=== PATIENT | female | born 1975 | race Caucasian/White ===

== ENCOUNTER 2020-09-15 16:57 | Emergency (ER) | payer OTHER ==
[~2020-09-15] VITALS: Ht 167.6 cm; Wt 114.3 kg
--- NOTE | 2020-09-15 17:20 | NUR ---
pt bib self c/o diarrhea and body aches, dysuria, and burning sensation x 8 days. vs checked. pt afebrile. seen by
[2020-09-15] MEDS ORDERED: IV NS 0.9% 1,000 ML IV ONE (17:30)
[2020-09-15 17:37] LABS: COLOR,URINE YELLOW (YELLOW)
[2020-09-15 17:38] LABS: BILIRUBIN,URINE NEGATIVE (NEGATIVE); LEUKOCYTE ESTERASE ,URINE NEGATIVE (NEGATIVE); NITRITE, URINE NEGATIVE (NEGATIVE); PROTEIN,URINE NEGATIVE (NEGATIVE); UGLUCOSE NEGATIVE (NEGATIVE); UROBILINOGEN,URINE 0.2 EU/dL (0.2)
--- NOTE | 2020-09-15 17:38 | NUR ---
covid swab done. sent to lab
[2020-09-15 17:39] LABS: BLOOD, URINE NEGATIVE Ery/uL (NEGATIVE)
[2020-09-15 18:08] LABS: CALCIUM, SERUM 8.8 mg/dL (8.5-10.1); CREATININE 0.8 mg/dL (0.6-1.3); POTASSIUM 3.7 mmol/L (3.5-5.1)
[2020-09-15 18:14] LABS: ALBUMIN 3.6 g/dL (3.4-5.0); BILIRUBIN,TOTAL 0.5 mg/dL (0.2-1.0); TOTAL PROTEIN, SERUM 6.4 g/dL (6.4-8.2)
--- NOTE | 2020-09-15 18:46 | NUR ---
called rt for breathing tx
[2020-09-15] MEDS ORDERED: IOHEXOL-300 100 ML VIAL IV ONE (19:01)
[2020-09-15] MEDS ORDERED: IV NS 0.9% 250 ML IV ONE (19:01)
[2020-09-15 19:02] LABS: BASOPHILS % (AUTO) 0.8 % (0.0-2.0); EOSINOPHILS % (AUTO) 3.5 % (0.0-6.0); HEMATOCRIT 38 % (33-45); HEMOGLOBIN 13.3 g/dL (11.5-14.8); LYMPHOCYTES # (AUTO) 1.2 /CMM (0.8-4.8); LYMPHOCYTES % (AUTO) 22.8 % (20.0-44.0); MEAN CORPUSCULAR HGB CONC 35 g/dl (31.0-36.0); MEAN CORPUSCULAR VOLUME 103 fL (82-100); MONOCYTES # (AUTO) 0.4 /CMM (0.1-1.30); MONOCYTES % (AUTO) 8.1 % (2.0-12.0); NEUTROPHILS # (AUTO) 3.3 /CMM (1.8-8.9); NEUTROPHILS % (AUTO) 64.8 % (43.0-81.0); PLATELET COUNT (AUTO) 222 /CMM (150-450); WHITE BLOOD COUNT (AUTO) 5.1 K/uL (4.3-11.0)
--- NOTE | 2020-09-15 19:10 | NUR ---
PT BROUGHT TO CT
--- NOTE | 2020-09-15 19:15 | NUR ---
PT AAOX4, VSS, RESPIRATIONS EVEN AND UNLABORED ON RA W/ NAD NOTED. PT CONNECTED TO THE MONITOR AND POX. PT HAS NO MEDICAL COMPLAINTS AT THIS TIME
--- NOTE | 2020-09-15 19:23 | NUR ---
PT BACK FROM CT
[2020-09-15 20:14] VITALS: BP 143/85
--- NOTE | 2020-09-15 20:14 | NUR ---
Patient discharged to home in stable condition. Written and verbal after care instructions given. Patient verbalizes understanding of instruction.IV removed. Catheter intact and site benign. Pressure and 4x4 applied to site. No bleeding noted.pt. ambulatory with a steady gait
--- NOTE | 2020-09-17 05:14 | NUR ---
REC'D NEGATIVE RESULT FOR COVID TEST.
== END 2020-09-15 20:15 | disposition home or self-care (01) ==
LOC: ER 17:02
DX: R19.7 Diarrhea, unspecified (principal); Z20.828 Contact with and (suspected) exposure to other viral communicable diseases; Z90.49 Acquired absence of other specified parts of digestive tract; J45.909 Unspecified asthma, uncomplicated; M06.9 Rheumatoid arthritis, unspecified; M35.00 Sjogren syndrome, unspecified; E27.40 Unspecified adrenocortical insufficiency; E66.01 Morbid (severe) obesity due to excess calories; Z68.41 Body mass index [BMI] 40.0-44.9, adult; Z90.710 Acquired absence of both cervix and uterus
CPT/HCPCS: 36415; 71045; 74177; 80053; 81001; 84703; 85025; 87426; 96360; 99285; C9803 ×2; J7030; J7050; Q9967; U0003